=== PATIENT | male | born 1970 | race Caucasian/White ===

== ENCOUNTER → 2019-01-01 | Outpatient (CLI) | payer OTHER ==
[2019-01-01 17:14] LABS: LDL Cholesterol,Calculated 75.2 mg/dL (0.0-131.0); VLDL Calculation 33.8 mg/dL (5.00-40.00)
== END ==
LOC: LABWHC1 09:27
PROVIDERS: ATTEND Nurse Practitioner Adult Health
DX: E78.5 Hyperlipidemia, unspecified (principal)
CPT/HCPCS: 36415; 80061

== ENCOUNTER 2022-08-29 05:49 | Day surgery (SDC) | payer OTHER ==
[2022-08-25 12:02] VITALS: BMI 52.1
[~2022-08-29 05:49] MED LIST: LACTATED RINGERS 1,000 ML IV SCH; SODIUM CHLORIDE 0.9% 1,000 ML IV SCH
[2022-08-29] MEDS ORDERED: SODIUM CHLORIDE 0.9% 1,000 ML IV ONE ×2 (06:02→11:25)
[2022-08-29 06:30] LABS: Basophils # (A) 0.1 k/uL (0-0.2); Basophils % (A) 1 %; Eosinophils # (A) 0.2 k/uL (0-0.7); Eosinophils % (A) 3 %; HCT 46.7 % (39.0-53.0); HGB 14.9 gm/dL (13.0-17.5); Lymphocytes # (A) 1.5 k/uL (1.0-4.8); Lymphocytes % (A) 23 %; MCH 29.7 pg (25.0-35.0); Mean Platelet Volume 7.4; Monocytes # (A) 0.4 k/uL (0-1.0); Monocytes % (A) 6 %; Neutrophils # (A) 4.3 k/uL (1.3-7.7); Neutrophils % (A) 65 %; Platelet Count 210 k/uL (150-450); RBC 5.02 m/uL (4.30-5.90); RDW 13.3 % (11.5-15.5); WBC 6.6 k/uL (3.8-10.6)
[2022-08-29 06:36] LABS: INR 3.8 (<1.2); Prothrombin Time 38.2 sec (9.0-12.0)
[2022-08-29 06:40] LABS: African American GFR (CKD) >90 (>60 ml/min/1.73 sqM); Anion Gap 10 mmol/L; Blood Urea Nitrogen 14 mg/dL (9-20); Calcium 8.7 mg/dL (8.4-10.2); Carbon Dioxide 22 mmol/L (22-30); Chloride 105 mmol/L (98-107); Glucose 117 mg/dL (74-99); Non-African American GFR(CKD) >90 (>60 ml/min/1.73 sqM); Potassium 4.7 mmol/L (3.5-5.1); Sodium 137 mmol/L (137-145)
[2022-08-29] MEDS ORDERED: fentaNYL (PF) 50 MCG/ML 2 ML AMP ONE (07:22)
[2022-08-29] MEDS ORDERED: PHENYLEPHRINE-0.9% NACL SYG 1,000 MCG/10 ML SYRINGE ONE (07:22)
[2022-08-29] MEDS ORDERED: PROPOFOL 10 MG/ML 20 ML VIAL IV ONE (07:22)
[2022-08-29] MEDS ORDERED: HEPARIN SODIUM,PORCINE 10,000 UNIT/ML 1 ML VIAL ONE (07:22)
[2022-08-29] MEDS ORDERED: ROCURONIUM 10 MG/ML (5 ML VIAL) IV ONE (07:22)
[2022-08-29] MEDS ORDERED: SUCCINYLCHOLINE CHLORIDE 200 MG/10 ML VIAL IV ONE (07:22)
[2022-08-29] MEDS ORDERED: LIDOCAINE 2% INJ 20 MG/ML (2 ML VIAL) ONE (07:22)
[2022-08-29] MEDS ORDERED: MIDAZOLAM 2 MG/2 ML VIAL ONE (07:22)
--- NOTE | 2022-08-29 07:54 | P.HPCAR ---
History of Present Illness This is Dr. Hernández dictating an H/P on this patient The patient was interviewed and examined IMPRESSION / ASSESSMENT: Persistent symptomatic atrial fibrillation of recent onset Hypertension Hypertriglyceridemia Morbid obesity PLAN: A. 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 EXAMINATION: Pulse rate irregular, in the 60s, afebrile 97.8F Respirations normal Orthopnea Blood pressure 131 which revealed his mercury Heart sounds are distant soft and irregular Lungs are clear no rhonchi no crackles Abdomen soft Morbid obesity noted No lower extremity edema REVIEW OF LABS, ECG & MEDICAL DATA Normal white count is 6.6 Hemoglobin 14.9 normal INR 3.8 Normal electrolytes sodium 137, potassium 4.7 Normal renal function, creatinine 0.8 Medications at home include warfarin, metoprolol, Zestril, Lasix and atorvastatin Also takes fenofibrate Physical Exam Vitals: Vital Signs Temp Pulse Resp BP Pulse Ox 08/29/22 06:18 97.8 F 63 18 131/82 95 Intake and Output 08/28/22 08/29/22 08/29/22 22:59 06:59 14:59 Intake Total 100 Balance 100 Intake: IV 100 Other: Weight 183.3 kg Past Medical History Past Medical History: Atrial Fibrillation, Hearing Disorder / Deafness, Hyperlipidemia, Hypertension, Sleep Apnea/CPAP/BIPAP Additional Past Medical History / Comment(s): See Dr Hernández's H&P. Hx superficial blood clot in left leg. Varicose veins. CPAP use. Some difficulty hearing at times. History of Any Multi-Drug Resistant Organisms: None Reported Past Surgical History: Appendectomy, Hernia Repair, Orthopedic Surgery Additional Past Surgical History / Comment(s): Right wrist surgery, "partial cardiac ablation". Past Anesthesia/Blood Transfusion Reactions: No Reported Reaction Past Psychological History: No Psychological Hx Reported Smoking Status: Current every day smoker Past Alcohol Use History: Occasional Additional Past Alcohol Use History / Comment(s): Smokes <1 pdd, since age 15. Past Drug Use History: None Reported - Past Family History Father Family Medical History: Deep Vein Thrombosis (DVT), Pulmonary Embolus Physical Examination Vital Signs Temp Pulse Resp BP Pulse Ox 08/29/22 06:18 97.8 F 63 18 131/82 95 Intake and Output 08/28/22 08/29/22 08/29/22 22:59 06:59 14:59 Intake Total 100 Balance 100 Intake: IV 100 Other: Weight 183.3 kg Results 08/29/22 06:10 08/29/22 06:10 Coagulation 08/29/22 Range/Units 06:10 PT 38.2 H (9.0-12.0) sec CBC 08/29/22 Range/Units 06:10 WBC 6.6 (3.8-10.6) k/uL RBC 5.02 (4.30-5.90) m/uL Hgb 14.9 (13.0-17.5) gm/dL Hct 46.7 (39.0-53.0) % Plt Count 210 (150-450) k/uL Comprehensive Metabolic Panel 08/29/22 Range/Units 06:10 Sodium 137 (137-145) mmol/L Potassium 4.7 (3.5-5.1) mmol/L Chloride 105 (98-107) mmol/L Carbon Dioxide 22 (22-30) mmol/L BUN 14 (9-20) mg/dL Creatinine 0.80 (0.66-1.25) mg/dL Glucose 117 H (74-99) mg/dL Calcium 8.7 (8.4-10.2) mg/dL Current Medications Generic Name Dose Route Start Last Admin Trade Name Freq PRN Reason Stop Dose Admin Sodium Chloride 1,000 mls @ 20 mls/hr 08/29/22 05:47 Saline 0.9% IV 09/28/22 05:48 .Q24H MICHAEL Lactated Ringer's 1,000 mls @ 20 mls/hr 08/29/22 05:47 Lactated Ringers IV 09/28/22 05:48 .Q24H MICHAEL Intake and Output 08/28/22 08/29/22 08/29/22 22:59 06:59 14:59 Intake Total 100 Balance 100 Intake: IV 100 Other: Weight 183.3 kg 08/29/22 06:10 08/29/22 06:10
[2022-08-29] MEDS ORDERED: HEPARIN SOD,PORK IN 0.45% NACL 25,000 UNIT in 0.45% NACL 1 250ML.BAG IV ONE (08:05)
[2022-08-29] MEDS ORDERED: LIDOCAINE 1% INJ 10MG/ML (30 ML VIAL-PF) SQ ONE (08:09)
[2022-08-29] MEDS ORDERED: IOPAMIDOL-370 100ML BTL INJ ONE (10:00)
--- NOTE | 2022-08-29 10:56 | P.EPPROC ---
- EP Procedure Note Electrophysiology Procedure Note: PROCEDURE A. fib ablation/PVI/linear ablation left atrial roof/left atrial septal ablation DIAGNOSIS Persistent Atrial fibrillation, symptomatic, refractory to therapy Mild cardio myopathy Morbid obesity Hypertension and dyslipidemia RESULT No left atrial appendage mass seen on intracardiac echo, thickened pericardium at the base of the LV, no effusion Calcification in the left coronary system Successful A. fib ablation/pulmonary vein isolation of all veins using cryo- ablation Complete entrance block in all 4 veins confirmed Successful linear ablation in the left atrial roof with overlapping lesions Successful ablation in the left atrial septum between the right superior and inferior pulmonary veins Electrical cardioversion successfully performed at the end of the procedure No evidence for phrenic nerve injury Esophageal deflection YES PROCEDURE DETAILS Patient was brought to the EP lab in a fasting state after obtaining written informed consent. Procedure performed under general anesthesia Esophagus was intubated. Esophageal temperature monitoring with circa catheter. Esophageal deflection with an endoscope to avoid hypothermia of the esophagus. After initial muscle relaxant use, muscle relaxants were not given thereafter in order to assess phrenic nerve during procedure. Patient prepped and draped as per protocol Cryo ablation-set up with standard preparation of the cryoablation tools done. Femoral Venous access obtained on the right and left groins and sheaths placed Diagnostic catheters for the high right atrium, phrenic nerve stimulation and pacing, His bundle, coronary sinus placed Intracardiac echo catheter placed. Long sheath placed in the right atrium Left and right transseptal catheterization performed under intracardiac echo guidance. Intravenous heparin with aCT above 300 Later, catheter positioning and balloon positioning in the left atrium and pulmonary veins, under intracardiac echo guidance Diagnostic EP study with coronary sinus pacing and recording Baseline measurements: QRS 101 ms, QT 3 minute 9 ms, heart rate in sinus rhythm 56 bpm HV 58 ms Transseptal catheterization performed RA pressure 26/20/23 LA pressure 31/12/23 Transseptal catheterization performed with standard sheath. The cryoablation sheath was then placed with an over the wire exchange without any acute complications. The cryoablation balloon was placed in the office of each pulmonary vein and all 4 pulmonary veins were isolated. IV dye was injected to confirm occlusion. Goal: achieve complete occlusion of the pulmonary vein, achieve -30 degrees C at 30 seconds and achieve -40 degrees C at 60 seconds and a time to effect of less than 60 seconds. If not, the balloon was repositioned to obtain this result After completion of Cryoblation with durations from 180-240 seconds, entrance block was confirmed with the Attain circular catheter in a roving fashion around the antrum of the pulmonary veins Phrenic nerve pacing was performed from the SVC, right innominate vein area and diaphragm voltage was monitored. Diaphragmatic contractions were also monitored manually for strength of contraction. Overlapping lesions in the left atrial roof for 3 minutes each to perform linear ablation of the left atrial roof Wide space between the right superior and right inferior pulmonary veins Foci lesions with good posterior contact lead to successful ablation of electrograms at the site At the end of the procedure the Achieve catheter was once again used to check for entrance block Phrenic nerve stimulation was performed to confirm diaphragmatic stimulation the end of the procedure Cine fluoroscopy was performed at the very end of the procedure to confirm movement of both diaphragms with inspiration and expiration At the end of the procedure the patient was extubated Venous sheaths were removed and hemostasis assured with a closure device This is a long and difficult procedure on account of the following #1. Morbid obesity, deep veins which were later closed with Vascade closure device and flow stasis device bilaterally #2 enlarged left atrium with very large pulmonary veins #3. The left-sided veins common vein and the temperature was achieved were low. Multiple antral lesions were administered around the antrum were isolated veins #4. Right inferior pulmonary vein was very posteriorly oriented and multiple attempts were made to finally be able to occlude and isolate it successfully #5 right severe pulmonary vein was a large size pulmonary vein #6 there was a wide space between the right superior and right inferior veins which was bridged with foci lesions successfully. Successful ablation at the site PROCEDURES PERFORMED Diagnostic EP study CS pacing and recording Left and right transseptal catheterization Catheter the mapping of the tachycardia Intracardiac echocardiography Pulmonary vein isolation with transseptal and comprehensive EPS, [id number] Left atrial roof line, +[id number] Linear ablation, left atrium, +[id number] Electrical cardioversion with a synchronized shock across the chest [id number] Increase procedures services
--- NOTE | 2022-08-29 10:58 | P.PRLE ---
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
[2022-08-29] MEDS ORDERED: HYDROmorphone 0.5 MG/0.5 ML SYRINGE IVP ONE (12:17)
[2022-08-29] MEDS: ACETAMINOPHEN TAB 325 MG TAB PO PRN (13:30)
[2022-08-29] MEDS ORDERED: ACETAMINOPHEN IV (For NPO) 1,000 MG in EMPTY BAG 1 BAG IVPB ONE (15:00)
[2022-08-29] MEDS: METOPROLOL TARTRATE 50 MG TAB PO SCH (21:48)
[2022-08-30] MEDS: ACETAMINOPHEN TAB 325 MG TAB PO PRN (00:35)
[2022-08-30 06:01] LABS: INR 4.1 (<1.2); Prothrombin Time 40.8 sec (9.0-12.0)
[2022-08-30 08:26] VITALS: BP 125/78; PULSE 69; RESP 18; TEMP 98.7
[2022-08-30] MEDS ORDERED: FUROSEMIDE 40 MG TAB PO SCH (09:00)
[2022-08-30] MEDS ORDERED: FENOFIBRATE 54 MG TAB PO SCH (09:00)
[2022-08-30] MEDS ORDERED: lisinopriL 10 MG TAB PO SCH (09:00)
[2022-08-30] MEDS ORDERED: ATORVASTATIN 10 MG TAB PO SCH (09:00)
--- NOTE | 2022-08-30 09:30 | P.DS ---
Providers Attending physician: Scooter Hernández Primary care physician: Kedar Medina [facility] Course: Patient is resting comfortably in bed He did get up and go to the bathroom. Times No chest pain no shortness of breath no dizziness or lightheadedness On examination heart sounds are regular and normal Breath sounds are clear no rhonchi no crackles Orthopnea Groins of healed well Minimal was from the incision But no hematoma no swelling minimal tenderness Impression Persistent atrial fibrillation status post ablation Patient underwent pulmonary vein isolation, left atrial septal ablation and left atrial roof ablation Following that he'll require electrical cardioversion sinus rhythm Today his twelve-lead EKG shows sinus mechanism INR today is 4.1. Yesterday it was 3.8 Hemoglobin 14.9 Normal sodium and potassium of 137 and 4.7 Normal creatinine of 0.8 Lipid panel Triglycerides 136, total. 124, LDL 58 and HDL 39 Patient is on atorvastatin 10 mg by mouth daily along with fenofibrate Plan His INR today is 4.1 I will ask patient to hold Coumadin today Starting tomorrow he will take Coumadin 2.5 mg Wednesdays and Fridays and 5 mg the other days of the week Continue all other medications, continue lisinopril and metoprolol Discharge home after lunch May go back to work after 2 days, this week on Monday Follow-up in the office in 1-2 weeks Plan - Discharge Summary Discharge Rx Participant: No New Discharge Prescriptions: Continue Warfarin [Coumadin] 5 mg PO SUTUWETHSA Metoprolol Tartrate [Lopressor] 50 mg PO BID Warfarin [Coumadin] 2.5 mg PO MOFR Furosemide [Lasix] 40 mg PO DAILY Fenofibrate 54 mg PO DAILY lisinopriL [Zestril] 10 mg PO DAILY Atorvastatin [Lipitor] 10 mg PO DAILY Cetirizine HCl 10 mg PO DAILY Discharge Medication List Metoprolol Tartrate [Lopressor] 50 mg PO BID 06/17/15 [History] Warfarin [Coumadin] 5 mg PO SUTUWETHSA 06/17/15 [History] Warfarin [Coumadin] 2.5 mg PO MOFR 06/18/15 [History] Atorvastatin [Lipitor] 10 mg PO DAILY 08/25/22 [History] Cetirizine HCl 10 mg PO DAILY 08/25/22 [History] Fenofibrate 54 mg PO DAILY 08/25/22 [History] Furosemide [Lasix] 40 mg PO DAILY 08/25/22 [History] lisinopriL [Zestril] 10 mg PO DAILY 08/25/22 [History] Follow up Appointment(s)/Referral(s): Scooter Hernández MD [STAFF PHYSICIAN] - 1 Week (Follow-up with Salome Ruiz in 1 week) Activity/Diet/Wound Care/Special Instructions: Post EP study - Ablation instructions 1. Keep access sites dry for 2 days. 2. No heavy lifting or straining for 2 days. 3. Avoid bending the hips repeatedly for 2 days. 4. You may go up and down stairs slowly Call if the following is noted 1. Bleeding, increasing swelling or pain at the access sites. 2. Increasing chest discomfort, especially upon taking a deep breath. 3. Increasing shortness of breath, at rest or with exertion. 4. Undue cough / phlegm 5. Difficulty or pain while swallowing. 6. Pain or change in color in the extremities. 7. Fever, chills, rigors. 8. Increasing headache or neurologic symptoms. 9. Dizziness, fainting, palpitations PT/INR checked next week at [facility] Discharge Disposition: HOME SELF-CARE
[2022-08-30] MEDS: METOPROLOL TARTRATE 50 MG TAB PO SCH (09:40)
== END 2022-08-30 14:10 | disposition home or self-care (01) ==
LOC: CATHEP 05:49 → 6NMEDSUR 10:26 → CATHEP 08-30 14:10
PROVIDERS: ATTEND Internal Medicine Clinical Cardiac Electrophysiology
DX: I48.19 Other persistent atrial fibrillation (principal); G72.89 Other specified myopathies; I10 Essential (primary) hypertension; E78.5 Hyperlipidemia, unspecified; E66.01 Morbid (severe) obesity due to excess calories; G47.33 Obstructive sleep apnea (adult) (pediatric); F17.200 Nicotine dependence, unspecified, uncomplicated; Z79.891 Long term (current) use of opiate analgesic; Z68.1 Body mass index [BMI] 19.9 or less, adult; Z79.01 Long term (current) use of anticoagulants; Z79.02 Long term (current) use of antithrombotics/antiplatelets; Z79.52 Long term (current) use of systemic steroids; Z79.899 Other long term (current) drug therapy
CPT/HCPCS: 92960; 93656; 93657; 80048; 80061; 85025; 85610 ×2; C1894 ×2; C1769 ×4; C1760; C1730 ×2; C1759; C1893; C1733; C1766; J2001; J0131; J1170; Q9967; J1644

== ENCOUNTER → 2022-10-17 | Outpatient (CLI) | payer OTHER ==
[2022-10-17 10:44] LABS: HCT 48.2 % (39.6-50.0); HGB 15.7 g/dL (13.0-17.0); MCH 29.5 pg (27.0-32.0); MCHC 32.6 g/dL (32.0-37.0); MCV 90.6 fL (80.0-97.0); NRBC Per 100 WBC 0 /100 WBCS (0.0-0.0); Platelet Count 233 X 10*3/uL (140-440); RBC 5.32 X 10*6/uL (4.40-5.60); RDW 12.7 % (11.5-14.5)
[2022-10-17 10:49] LABS: African American GFR (CKD) 112.6 (60.0-200.0); Anion Gap 11.8 mmol/L (10.00-18.00); Blood Urea Nitrogen 15.3 mg/dL (9.0-27.0); Carbon Dioxide 24.2 mmol/L (20.0-27.5); Non-African American GFR(CKD) 97.2 (60.0-200.0); Potassium 4.4 mmol/L (3.5-5.5)
== END | disposition home or self-care (01) ==
LOC: LABPAT 07:48
PROVIDERS: ATTEND Internal Medicine Clinical Cardiac Electrophysiology
DX: Z01.812 Encounter for preprocedural laboratory examination (principal); I48.19 Other persistent atrial fibrillation; E78.5 Hyperlipidemia, unspecified
CPT/HCPCS: 80051; 82565; 84520; 85027

== ENCOUNTER → 2022-10-21 | Day surgery (SDC) | payer OTHER ==
[2022-10-17 10:03] VITALS: BMI 52.1
[2022-10-21 06:48] VITALS: BP 114/57; PULSE 56; RESP 16; TEMP 98
--- NOTE | 2022-10-21 07:51 | P.HPCAR ---
History of Present Illness This is Dr. Hernández dictating an H/P on this patient The patient was interviewed and examined IMPRESSION / ASSESSMENT: Persistent symptomatic atrial fibrillation with tiredness and fatigue and mild cardio myopathy Status post A. fib ablation with PVI and ablation of the left atrial roof and septum Recurrence of atrial fibrillation following A. fib ablation Symptomatic with tiredness fatigued shortness of breath despite rate control of atrial fibrillation On Coumadin Recently started on flecainide with a plan for electrical cardioversion Successful chemical cardioversion with flecainide, obviating the need for electrical cardioversion History of hypertension History of morbid obesity History of hypertriglyceridemia PLAN: Continue anticoagulation, maintain therapeutic INRs Continue flecainide 50 mrem twice daily Continue Zestril 10 mg daily Continue atorvastatin 10 mg daily Gradual weight reduction Control of hypertension and triglycerides/lipids Complete abstinence from alcohol and nicotine products Discussed with the patient Patient will be discharged home today and we will follow him in about 4-6 weeks Follow-up 2-D echo will be ordered along with a follow-up Holter monitor HPI Patient name informed electrical cardioversion He feels well. He has less short of breath at this time His rhythm was found to be regular and therefore twelve-lead EKG showed sinus mechanism Confirming successful chemical cardioversion with low dose flecainide ROS: No fever chills or rigors, no cough, phlegm or expectoration, no nausea, vomiting or diarrhea, no hematuria, dysuria, no musculoskeletal complaints, no strokes or seizures, no skin lesions. EXAMINATION: Afebrile 90F, pulse rate in the 50s normal respirations Blood pressure 125/78 and 114/57 mmHg Breath sounds are equal bilaterally, reduced Heart sounds are regular No JVD No lower extremity edema Trophic changes in the lower extremities Increased BMI, morbid obesity REVIEW OF LABS, ECG & MEDICAL DATA Medications reviewed and include flecainide and warfarin Zestril atorvastatin Same-day Discharge note patient is stable from a cardiovascular standpoint He is in sinus rhythm line his twelve-lead EKG shows sinus mechanism Twelve-lead EKG shows sinus mechanism normal SC narrow QRS normal ST segments Heart rate 53 beats a minute at rest Discussed her future plan with patient Follow-up Holter monitor in 4 weeks Follow-up with Dr. Hernández in 6 weeks Follow-up limited 2-D echo to reassess LV function Low salt diet Abstinence from alcohol use Physical Exam Vitals: Vital Signs Temp Pulse Resp BP Pulse Ox 10/21/22 06:47 98 F 56 L 16 114/57 97 Intake and Output 10/20/22 10/21/22 10/21/22 22:59 06:59 14:59 Other: Weight 173.4 kg Past Medical History Past Medical History: Atrial Fibrillation, Hearing Disorder / Deafness, Hyperlipidemia, Hypertension, Sleep Apnea/CPAP/BIPAP Additional Past Medical History / Comment(s): See Dr Hernández's H&P. Hx superficial blood clot in left leg. Varicose veins. CPAP use. Some difficulty hearing at times. History of Any Multi-Drug Resistant Organisms: None Reported Past Surgical History: Appendectomy, Cardiac Ablation, Hernia Repair, Orthopedic Surgery Additional Past Surgical History / Comment(s): Right wrist surgery Past Anesthesia/Blood Transfusion Reactions: No Reported Reaction Past Psychological History: No Psychological Hx Reported Smoking Status: Current every day smoker Past Alcohol Use History: Occasional Additional Past Alcohol Use History / Comment(s): Smokes <1 pdd, since age 15. Past Drug Use History: None Reported - Past Family History Father Family Medical History: Deep Vein Thrombosis (DVT), Pulmonary Embolus Physical Examination Vital Signs Temp Pulse Resp BP Pulse Ox 10/21/22 06:47 98 F 56 L 16 114/57 97 Intake and Output 10/20/22 10/21/22 10/21/22 22:59 06:59 14:59 Other: Weight 173.4 kg Results Current Medications Generic Name Dose Route Start Last Admin Trade Name Freq PRN Reason Stop Dose Admin Lactated Ringer's 1,000 mls @ 20 mls/hr 10/21/22 05:15 Lactated Ringers IV 11/20/22 05:16 .Q24H MICHAEL Sodium Chloride 1,000 mls @ 20 mls/hr 10/21/22 05:15 Saline 0.9% IV 11/20/22 05:16 .Q24H MICHAEL Intake and Output 10/20/22 10/21/22 10/21/22 22:59 06:59 14:59 Other: Weight 173.4 kg
== END ==
LOC: CATHEP 05:40
PROVIDERS: ATTEND Internal Medicine Clinical Cardiac Electrophysiology
DX: I48.0 Paroxysmal atrial fibrillation (principal)